=== PATIENT | male | born 1955 | race Caucasian/White ===

== ENCOUNTER 2016-11-25 08:38 | Day surgery (SDC) | payer BC ==
[~2016-11-25] VITALS: Ht 163.6 cm; Wt 74.1 kg
[2016-11-25] VITALS (10 sets, daily range): BP systolic 102–128; BP diastolic 54–80; PULSE 54–68; RESP 14–18; TEMP 97.5–98.2; O2SAT 96–100; Ht 163.6 cm; Wt 74.1 kg
[~2016-11-25 08:38] MED LIST: CEFAZOLIN 1 GRAM INJECTION IV ONE; LIDOCAINE 1% (10mg/ml) 2ml SDV INJ ONE; LR 1,000 ML IV SCH; OMEP20TA2 PO
--- NOTE | 2016-11-25 09:14 | ANESPREOP ---
Anesthesia Record Date and Time DATE: 11/25/16 TIME: 09:13 Pre-Op Diagnosis Umbilical hernia Proposed Surgical Procedure OPEN UMBILICAL HERNIA REPAIR NPO since: Midnight Allergies: Coded Allergies: No Known Allergies (Unverified , 11/24/16) Ht/Wt/BMI Height: 5 ' 4.40 " Weight: 74.100 kg BMI: 27.7 kg/m2 Vital Signs Date Time Temp Pulse Resp B/P Pulse Ox O2 Delivery O2 Flow Rate FiO2 11/25/16 08:50 98.2 68 16 126/80 98 Room Air Medications Inpatient Medications Current Medications Medications (Trade) Dose Ordered Sig/Maykel Start Time Stop Time Status Last Admin Dose Admin Lactated Ringer's (Lactated Ringers) 1,000 ml @ 50 mls/hr Q20H 11/25/16 07:00 Omeprazole Magnesium (Prilosec Otc) 20 Mg Tablet.dr, 1 TAB PO DAILY, (Reported) Currently on Beta Rosa: No Medical/Surgical History Anesthesia PMH: Reports: Arthritis (BACK & HIPS,OA PER H&P), Hiatal Hernia, Reflux, Denies: Anesthesia Reactions (NO AIRWAY ISSUES), Cancer, Clotting Problems, Glaucoma, Malignant Hyperthermia, Sleep Apnea Smoking Status: Never smoker Has pt. smoked today?: No Use Chewing Tobacco?: No Second Hand Exposure: No Substance Use Type: does not use Alcohol Intake: none Past Surgical History Orthopedic Surgeries: Abdominal Surgeries: Yes - DOUBLE HERNIA REPAIR CHILD Genitourinary Surgeries: Yes - CYSTOSCOPY Cardiac Surgeries: Endocrine Surgeries: Reproductive Surgeries: Neurological Surgeries: Ear Surgeries: Nose Surgeries: Throat Surgeries: Other Surgeries: Yes - COLONOSCOPY & EGD Anesthesia Adverse Reactions: FOUND none Family Hx of Anesthesia Advers: none Hx of Motion Sickness: No Pertinent Findings EKG Rhythm: Sinus Rhythm Physical Exam Respiratory: Lungs clear Cardiovascular: FOUND Regular rate, rhythm Airway Assessment Mallampati Score: II TMD: 3 Fingerbreadths Neck Extension: Good Overall Assessment: No Airway Concerns ASA: 2 Plan Anesthesia Plan: TIVA, LMA Discussion Discussed risks/options/alternatives of anesthesia and questions answered. Patient consents. Nursing pain assessment noted. Attestation Statement Prior to the delivery of any anesthetic medication, I examined the patient, developed the plan, obtained the patient's consent and discussed the risk and benefits of the procedure with the patient/guardian. MARIA DOLORES CONTRERAS CRNA Nov 25, 2016 09:14
[2016-11-25] MEDS ORDERED: BUPIVACAINE 0.25% (2.5mg/ml) INJ 30ml SDV ONE (10:22)
[2016-11-25] MEDS ORDERED: PROPOFOL 500mg 50 ML IV ONE ×2 (10:22→10:57)
[2016-11-25] MEDS ORDERED: PROPOFOL 200mg 20 ML IV ONE (10:22)
[2016-11-25] MEDS ORDERED: FENTANYL 100mcg/2ml INJECTION ONE (10:23)
[2016-11-25] MEDS ORDERED: KETAMINE 500mg/10ml INJECTION ONE (10:23)
[2016-11-25] MEDS ORDERED: PROPOFOL 200mg 40 ML IV ONE (11:41)
--- NOTE | 2016-11-25 12:07 | GSPOSTPROC ---
Immediate Operative Note DATE: 11/25/16 TIME: 12:05 Postop Diagnosis: Umbilical hernia Surgical Procedure: Other (Repair of umbilical hernia) Surgeon: Kate ASA: 2 SANJAY JACKSON MD Nov 25, 2016 12:06
[2016-11-25] MEDS ORDERED: PROMETHAZINE 25 MG INJECTION IV PRN (12:15)
[2016-11-25] MEDS ORDERED: IBUPROFEN 200 MG TABLET PO PRN (12:15)
[2016-11-25] MEDS ORDERED: OXYCODONE I.R. 5 MG TABLET PO PRN (12:15)
[2016-11-25] MEDS ORDERED: MORPHINE 10mg/ml vl INJECTION IV PRN (12:15)
[2016-11-25] MEDS ORDERED: ACETAMINOPHEN 500 MG TABLET PO PRN (12:15)
[2016-11-25] MEDS ORDERED: ONDANSETRON 4mg/2ml INJECTION IV PRN (12:15)
--- NOTE | 2016-11-25 14:20 | NUR ---
POST- OP MEDS PAIN MEDICATION PRESCRIPTION GIVEN TO AND TAKEN TO [facility].
--- NOTE | 2016-11-26 08:41 | OPNOTEF ---
DATE OF OPERATION 11/25/2016 PREOPERATIVE DIAGNOSIS Incarcerated umbilical hernia. POSTOPERATIVE DIAGNOSIS Incarcerated umbilical hernia. OPERATION Repair of incarcerated umbilical hernia. SURGEON Allen Love MD ANESTHESIA [facility]. ASA CLASS 2 FINDINGS The patient did have an incarcerated umbilical hernia. There was a well-defined fascial defect located directly beneath the umbilicus. There was a well-developed peritoneal hernia sac coming out through this fascial defect. The patient did have greater omentum incarcerated within the umbilical hernia sac. The greater omentum was viable. There were no loops of intestine within the hernia sac. DESCRIPTION OF OPERATION The patient was brought to the operating table. The patient was placed in a supine position on the operating table. The patient was premedicated with intravenous sedation medication administered by the nurse district plant engineer. The abdomen was prepped and draped in a routine sterile fashion. Bupivacaine 0.25% without epinephrine was infiltrated into the skin and subcutaneous tissue at an infraumbilical incision site. An infraumbilical incision was made and extended through the skin and subcutaneous tissue. The incision was extended down through subcutaneous tissue. The incision did extend down to right and left side of the umbilicus. The umbilical hernia sac was dissected free of the skin of the umbilicus. The umbilical hernia sac was dissected free of surrounding subcutaneous tissue. Margins of the fascial defect were dissected out and identified. The umbilical hernia sac was opened. The greater omentum within the umbilical hernia sac could not be reduced back through the fascial defect into the peritoneal cavity. Pedicles of greater omentum were clamped with hemostats and excised. These clamped pedicles of greater omentum were then ligated with 3-0 Vicryl transfixed stitches. The portion of greater omentum which came out through the fascial defect of the umbilical hernia sac was excised in this manner. The ligated pedicles of greater omentum which remained after excision of the greater omentum were then reduced back through the fascial defect into the peritoneal cavity. The opening in the umbilical hernia sac was then closed with a continuous simple gima-udz-ewez stitch using 3-0 Vicryl suture. The umbilical hernia sac was preserved as a layer of tissue between the mesh and underlying loops of intestine. Margins of the fascial defect were dissected out and defined further. The posterior rectus sheath fascia and linea alba fascia all around margins of the fascial defect were cleaned off on all sides at a subfascial level around the fascial defect. This did create a subfascial space to place the Bard Ventralex hernia patch. A medium-size Bard Ventralex hernia patch was used. The diameter of this patch was 6.4 cm (2.5 inches). The hernia patch was folded and inserted through the fascial defect into the subfascial space. The preperitoneal adipose tissue and abdominal wall parietal peritoneum and the umbilical hernia sac which was preserved were all located posterior to the patch. The posterior rectus sheath fascia and linea alba fascia were located anterior to the patch. The fascia was then unfolded in this subfascial position. The margins of the patch were checked circumferentially around the patch to make sure that the patch would lie flat in this subfascial position and that there was nothing caught between the patch and the overlying posterior rectus sheath fascia and linea alba fascia. The positioning strap was pulled up to flatten the Bard Ventralex hernia patch against the posterior rectus sheath fascia and linea alba fascia. The positioning straps were pulled apart. A similar interrupted stitch of 0 PDS suture was placed through the fascia out laterally to the right side of the right margin of the fascial defect and used to incorporate a bite of the anterior polypropylene mesh layer of the hernia patch at the peripheral margin of the hernia patch. This stitch was then brought out through the fascia again to be tied down on the anterior surface of the fascia. This did secure the right peripheral margin of the hernia patch up against the overlying fascia. A similar stitch was then placed out laterally on the left side beyond the left margin of the fascial defect. This did secure the left peripheral margin of the hernia up against the overlying fascia. Three similar stitches of 0 PDS suture were then placed through fascia superior to the superior margin of the fascial defect. The stitches incorporated a bite of the anterior polypropylene mesh layer of the hernia patch at the level of the peripheral margin of the hernia patch. These stitches were then brought out through the fascia again and tied down on the anterior surface of the fascia. This did secure the peripheral margin of the hernia patch up against the overlying fascia superior to the superior margin of the fascial defect at three different points. Three similar stitches of 0 PDS suture were then placed inferior to the inferior margin of the fascial defect to secure the peripheral margin of the hernia patch up against the overlying fascia at this level. All of this did result in a total of 8 stitches which were placed around the peripheral margin of the hernia patch in this manner to secure the peripheral margin of the hernia patch up to the overlying fascia. These stitches were all tied down. The excess superior positioning strap and excess inferior positioning strap were cut off and discarded. The fascia at the superior margin of the fascial defect was then approximated to the fascia at the inferior margin of the fascial defect with a continuous simple pqce-arc-mcnn stitch using 0 PDS suture. This stitch did incorporate some bites of the divided margins of the positioning straps of the Bard Ventralex hernia patch. This 0 PDS continuous simple kidx-lnh-jcwb stitch did close the fascial defect with a transversely oriented suture line. The superior margin of the fascial defect was able to be approximated to the inferior margin of the fascial defect without any tension on the suture line. This did close the fascia over the hernia patch with the patch held in place beneath the suture line. This did appear to create a good strong repair of the umbilical hernia. Hemostasis was satisfactory at the subcutaneous space. The base of the umbilicus was secured down to the underlying fascia with three simple interrupted stitches of 3-0 Vicryl suture. Skin margins at the infraumbilical incision were reapproximated with skin maureen. Sterile dressings were applied. Sponge, needle, and instrument counts were all correct. The patient did appear to tolerate the operation well. The patient was transferred from the operating room in satisfactory condition. MITA
== END 2016-11-25 15:07 | disposition home or self-care (01) ==
LOC: SCU 08:38
PROVIDERS: ATTEND Surgery
DX: K42.0 Umbilical hernia with obstruction, without gangrene (principal); K21.9 Gastro-esophageal reflux disease without esophagitis; K44.9 Diaphragmatic hernia without obstruction or gangrene; G89.29 Other chronic pain; Z79.1 Long term (current) use of non-steroidal anti-inflammatories (NSAID); Z79.899 Other long term (current) drug therapy
CPT/HCPCS: 49587; J0690; J2405; J2704; J3010; J7120; S0020

== ENCOUNTER 2016-12-30 08:07 | Day surgery (SDC) | payer BC ==
[2016-12-30] VITALS (7 sets, daily range): BP systolic 97–133; BP diastolic 62–79; PULSE 60–82; RESP 12–16; TEMP 97.2–98; O2SAT 65–100; Ht 160 cm; Wt 72.7 kg
[~2016-12-30] VITALS: Ht 160 cm; Wt 72.7 kg
[~2016-12-30 08:07] MED LIST changes: -CEFAZOLIN 1 GRAM INJECTION IV ONE; +IBUP-1724 PO
--- OUTSIDE RECORDS SUMMARY | 2016-12-30 08:11 | XMS REPORT | Continuity of Care Document ---
Author Author [facility] Organization [facility] Address Unknown Phone Unavailable Support Name Relationship Address Phone YEYO JOHNSTON MD Caregiver [address] [place] [address] Unavailable SANJAY JACKSON MD Caregiver [address] [place] [address] [place] [address] Unavailable HOWIE DOUG Next Of Kin [address] [place], [place] [id number] Insurance Providers Guarantor John Garcia Address [address] [place] [address] Email [email or web address] Payer [facility] Policy Number [id number] Subscriber's Name John Garcia Relationship 18 Self Group Number [id number] Advance Directives Directive Response Recorded Date/Time Ordered Resuscitation Status Full Code 11/24/16 2:38pm Resuscitation Documents on File No 11/25/16 9:30am DPOA for Healthcare Only No 11/25/16 9:30am Living Will No 11/25/16 9:30am Problems No problem information available. Medications Current Home Medications Medication Dose Units Route Directions Days Qty Instructions Start Date Omeprazole Magnesium (Prilosec Otc) 20 Mg Tablet. 1 Tab Oral Daily 11/24/16 Social History Social History Problem Response Recorded Date/Time Onset Date Status Reason for Hospitalization UMBILICAL HERNIA REPAIR 11/25/2016 2:27pm Not Applicable Not Applicable Chewing Tobacco Status No 11/25/2016 9:20am Not Applicable Not Applicable Hx Substance Use No 11/25/2016 9:20am Not Applicable Not Applicable Hx Alcohol Use Y 1 X MONTH 11/25/2016 9:20am Not Applicable Not Applicable Has the pt used tobacco in the last 12 months No 11/25/2016 9:20am Not Applicable Not Applicable Query Response Start Date Stop Date Smoking Status Never smoker Hospital Discharge Instructions Instructions: Care Instructions: I was in the hospital because (patient own words): umbilical hernia repair Discharge Diet: Resume previous diet. Discharge Activity: Restricted. Follow Up Appointments: Call Od[facility] at ext [phone] and make appointment for postop visit on 12-02-16 or 12-05-16. Pending Lab / Results: No Pending Lab Expected Signs/Symptoms: Usual incisional discomfort Notify Physician If: Any concerns about appearance of wound. During Business Hours:: Please call the physician's office at [phone] and choose option 2. After Business Hours:: Please call [phone] and have the lithographic press operator apprentice page Dr. Jackson. Pain Management/Treatment: Take analgesics as prescribed. Wound/Incision Care: Remove dressings as instructed by physician. Condition at time of discharge: Good Plan of Care Discharge Date 11/25/16 3:07pm Instructions/Education Provided [facility] Prescriptions See Medication Section Functional Status Query Response Date Recorded Ability to complete ADL's impeded by No change November 25, 2016 9:30am Allergies, Adverse Reactions, Alerts No known allergies. Immunizations Query Response on File Recorded Date/Time Hx Influenza Vaccination No 11/25/16 9:20am Hx Pneumococcal Vaccination No 11/25/16 9:20am Hx Influenza Vaccination No 11/25/16 9:20am Vital Signs Acute Vital Signs Vital Response Date/Time Temperature (Fahrenheit) 97.5 deg F (96.8 - 99.1) 11/25/2016 12:03pm Temperature (Calculated Celsius) 36.27907 degrees C (36.0 - 37.3) 11/25/2016 12:03pm Temperature Source Temporal 11/25/2016 12:03pm Pulse Rate (adult) 68 bpm (60 - 100) 11/25/2016 2:45pm Respiratory Rate 16 breaths/min (10 - 20) 11/25/2016 2:45pm O2 Sat by Pulse Oximetry 98 % (90 - 100) 11/25/2016 2:45pm Oxygen Delivery Method Room Air 11/25/2016 2:45pm Oxygen Flow Rate 6.00 L/min 11/25/2016 12:15pm Blood Pressure 128/58 mm Hg 11/25/2016 2:45pm Blood Pressure Source Automatic Cuff 11/25/2016 2:45pm Height (Feet) 5 feet 11/25/2016 8:50am Height (Inches) 4.40 inches 11/25/2016 8:50am Weight (Kilograms) 74.100 kg 11/25/2016 8:50am Body Mass Index (BMI) 27.7 11/25/2016 8:50am Results No known relevant diagnostic tests, laboratory data and/or discharge summary. Procedures Procedure Status Date Provider(s) Repair of umbilical hernia Completed 11/25/16 SANJAY JACKSON MD Encounters Encounter Location Arrival/Admit Date Discharge/Depart Date Attending Provider Departed [facility] 11/25/16 8:38am 11/25/16 3: 07pm SANJAY JACKSON MD
[2016-12-30] MEDS ORDERED: FLEET PHOSPHO-SODA 133 ML ENEMA RECTALLY PRN (09:00)
--- NOTE | 2016-12-30 09:12 | ANESPREOP ---
Anesthesia Record Date and Time DATE: 12/30/16 TIME: 09:10 Proposed Surgical Procedure COLONOSCOPY Allergies: Coded Allergies: No Known Allergies (Unverified , 12/29/16) Ht/Wt/BMI Height: 5 ' 3.00 " Weight: 72.700 kg BMI: 28.4 kg/m2 Vital Signs Date Time Temp Pulse Resp B/P Pulse Ox O2 Delivery O2 Flow Rate FiO2 12/30/16 08:21 98.0 72 14 133/79 100 Room Air Medications Inpatient Medications Current Medications Medications (Trade) Dose Ordered Sig/Maykel Start Time Stop Time Status Last Admin Dose Admin Lactated Ringer's (Lactated Ringers) 1,000 ml @ 50 mls/hr Q20H 12/30/16 07:00 12/30/16 08:48 50 MLS/HR Sodium Biphosphate/ Sodium Phosphate (Fleet Enema) 1 enema PRN PRN 12/30/16 09:00 UNV 12/30/16 08:54 1 ENEMA Ibuprofen (Ibuprofen) 200 Mg Tablet, 2 TAB PO Q4H PRN for PAIN, (Reported) Last Taken: on 12/28/16 0800 Omeprazole Magnesium (Prilosec Otc) 20 Mg Tablet.dr, 1 TAB PO DAILY, (Reported) Last Taken: on 12/30/16 0730 Currently on Beta Rosa: No Medical/Surgical History Anesthesia PMH: Reports: Arthritis (BACK, HIPS & HANDS), Hiatal Hernia, Reflux , Denies: Anesthesia Reactions (NO AIRWAY ISSUES), Cancer, Clotting Problems, Glaucoma, Hepatitis, Malignant Hyperthermia, Sleep Apnea Smoking Status: Never smoker Has pt. smoked today?: No Use Chewing Tobacco?: No Second Hand Exposure: No Substance Use Type: does not use Alcohol Intake: none, rarely Past Surgical History Orthopedic Surgeries: Abdominal Surgeries: Yes - DOUBLE HERNIA REPAIR CHILD, UMBILICAL HERNIA Genitourinary Surgeries: Yes - CYSTOSCOPY Cardiac Surgeries: Endocrine Surgeries: Reproductive Surgeries: Neurological Surgeries: Ear Surgeries: Nose Surgeries: Throat Surgeries: Other Surgeries: Yes - COLONOSCOPY & EGD Anesthesia Adverse Reactions: FOUND none Family Hx of Anesthesia Advers: none Hx of Motion Sickness: No Pertinent Findings EKG Rhythm: Sinus Rhythm Airway Assessment Mallampati Score: II TMD: 3 Fingerbreadths Neck Extension: Good Overall Assessment: No Airway Concerns ASA: 2 Plan Anesthesia Plan: TIVA Discussion Discussed risks/options/alternatives of anesthesia and questions answered. Patient consents. Nursing pain assessment noted. Attestation Statement Prior to the delivery of any anesthetic medication, I examined the patient, developed the plan, obtained the patient's consent and discussed the risk and benefits of the procedure with the patient/guardian. PREMA RIVERA December 30, 2016 09:12
[2016-12-30] MEDS ORDERED: PROPOFOL 500mg 50 ML IV ONE (09:44)
[2016-12-30] MEDS ORDERED: PROPOFOL 200mg 20 ML IV ONE (11:35)
--- NOTE | 2016-12-30 11:48 | GSPOSTPROC ---
Immediate Operative Note DATE: 12/30/16 TIME: 11:46 Postop Diagnosis: Colon polyps Surgical Procedure: C-scope w/Polypectomy Surgeon: Kate ASA: 2 SANJAY JACKSON MD December 30, 2016 11:48
--- NOTE | 2016-12-30 12:45 | NUR ---
CARE ASSUMED AT 1245. CHARTING NOT COMPLETED BY PREVIOUS RN PRIOR TO DISCHARGE.
--- NOTE | 2016-12-30 12:47 | ANESPO ---
Post-Op Note Date 12/30/16 Time: 12:45 Status Pt Participated in Evaluation: Pt participated in person Vital Signs Date Time Temp Pulse Resp B/P Pulse Ox O2 Delivery O2 Flow Rate FiO2 12/30/16 12:30 66 14 108/74 99 Room Air 12/30/16 11:40 97.2 Respiratory Function: Airway patent, Regular respirations Cardiovascular Function: Regular pulse Mental Status: Alert/oriented Pain Level Intensity: 0 Hydration: Taking po fluids Complications during Recovery None apparent Follow-Up Instructions Instructions Per Surgeon JONATHAN MORENO CRNA December 30, 2016 12:47
--- NOTE | 2016-12-30 16:24 | OPNOTEF ---
DATE OF OPERATION 12/30/2016 PREOPERATIVE DIAGNOSES 1. Personal history of tubular adenoma colon polyp. 2. Hematochezia. 3. Colonic diverticulosis. POSTOPERATIVE DIAGNOSES 1. Personal history of tubular adenoma colon polyp. 2. Hematochezia. 3. Colonic diverticulosis. 4. Colon polyps. 5. Distal rectal polyp. 6. Internal and external hemorrhoids. OPERATION Total colonoscopy with polypectomy. SURGEON Dr. Kate SUÁREZ ASA Class 2 FINDINGS This patient did not have any colon tumors. The patient did have four colon polyps. One of these polyps was located 80 cm proximal to the anal verge. Another one was located 70 cm proximal to the anal verge. Another one was located 65 cm proximal to the anal verge. All these polyps at 80 cm, 70 cm and 65 cm proximal to the anal verge were thought to be located at the ascending colon. The patient did have one additional small polyp at the proximal ascending colon in addition to these other three polyps at the ascending colon. The patient also had a sessile distal rectal polyp. This was at the anterior side of the rectum at the distal rectum. This distal rectal polyp could be easily felt with the tip of an index finger at distal rectal examination. It was thought that the hematochezia experienced by the patient could have been due to bleeding from this distal rectal polyp. The patient did also have some internal and external hemorrhoids. The patient did have some colonic diverticulosis scattered throughout the colon. There was some diverticulosis at the ascending colon. There was also some diverticulosis at the left side of the colon. There was no evidence of any inflammatory bowel disease. There were no colonic angiodysplasia lesions. There was no melanosis coli. DESCRIPTION OF OPERATION The patient was brought to the endoscopy room. The patient was placed on a cart in the endoscopy room. The patient was placed in left lateral recumbent position on the cart in the endoscopy room. The patient was premedicated with intravenous sedation medication administered by the nurse transformer mechanic. The Olympus colonoscope was used. The colonoscope was introduced into the rectum. The colonoscope was advanced up through the rectum and colon all way up to the cecum. As the colonoscope was being advanced up through the colon, a polyp was identified at the ascending colon. This polyp was removed with the electrocautery snare device and retrieved and submitted as a specimen for study by the pathologist. The colonoscope was advanced further up through the colon. Another polyp was seen at the ascending colon. This polyp was removed with the cold endoscopic biopsy forceps and submitted for study by the pathologist. The colonoscope was advanced further up through the colon. Another small polyp was seen at the ascending colon. This polyp was removed with the cold endoscopic biopsy forceps and submitted as a specimen for study by the pathologist. The colonoscope was advanced all the way up into the cecum. The appendiceal orifice was seen. The ileocecal valve was seen. The colonoscope was withdrawn back out through the colon. Another polyp was identified at the proximal ascending colon at this time. This polyp was removed with one bite of the cold endoscopic biopsy forceps and submitted as a specimen for study by the pathologist. The colonoscope was then withdrawn out through the colon. The colonoscope was withdrawn out through the colon all way down to the distal rectum. A sessile polyp was seen at the distal rectum. The colonoscope was removed from the patient. Digital rectal examination was performed. The distal rectal polyp could be felt at digital rectal exam. The tip of the colonoscope was reintroduced into the rectum. The distal rectal polyp was identified and visualized with the colonoscope. The distal rectal polyp was then removed in piecemeal fashion in two pieces with the electrocautery snare device. Each of these two pieces was retrieved. The two pieces were submitted together for study by the pathologist. The colonoscope was removed from the rectum. Digital rectal examination was again performed. Findings throughout the procedure were as described above. The patient did continue to receive intravenous sedation medication administered by the nurse transformer mechanic throughout the operation. The patient did tolerate the operation well. MITA
== END 2016-12-30 13:12 | disposition home or self-care (01) ==
LOC: SCU 08:07
PROVIDERS: ATTEND Surgery
DX: D12.2 Benign neoplasm of ascending colon (principal); D12.6 Benign neoplasm of colon, unspecified; D12.8 Benign neoplasm of rectum; K92.1 Melena; Z86.010 Personal history of colon polyps; K57.30 Diverticulosis of large intestine without perforation or abscess without bleeding; K64.8 Other hemorrhoids; K64.4 Residual hemorrhoidal skin tags; K21.9 Gastro-esophageal reflux disease without esophagitis; K44.9 Diaphragmatic hernia without obstruction or gangrene; Z79.1 Long term (current) use of non-steroidal anti-inflammatories (NSAID); Z79.899 Other long term (current) drug therapy
CPT/HCPCS: 45380; 45385; J2704; J7120